=== PATIENT | male | born 1995 | race African-American/Black ===

== ENCOUNTER 2018-03-10 11:28 | Emergency (ER) | payer MEDICAID ==
[~2018-03-10] VITALS: Ht 175.3 cm; Wt 63.6 kg
[2018-03-10 11:30] VITALS: BP 155/87
== END 2018-03-10 13:25 | disposition home or self-care (01) ==
LOC: EMS 11:34
DX: R10.9 Unspecified abdominal pain (principal); F12.90 Cannabis use, unspecified, uncomplicated
CPT/HCPCS: 74176